=== PATIENT | female | born 1965 | race Caucasian/White ===

== ENCOUNTER → 2024-07-23 | Outpatient (CLI) | payer BC ==
[2024-07-23 15:31] LABS: THYROXINE (T4) 7.1 UG/DL (4.5-10.9)
[2024-07-23 15:32] LABS: THYROID STIMULATING HORMONE 1.568 uIU/ML (0.55-4.78); TOTAL 25(OH) VITAMIN D 29.3 NG/ML (20.0-100.0)
[2024-07-23 15:34] LABS: FREE THYROXINE INDEX 2.4 % (1.3-4.8); T UPTAKE 34.1 % (22.5-37.0)
[2024-07-23 15:46] LABS: FOLATE 6.9 NG/ML (>5.4)
[2024-07-25 16:16] LABS: ALDOLASE 4.7 U/L (< OR = 8.1)
[2024-07-28 05:52] LABS: VITAMIN E(ALPHA TOCOPHEROL) 10.1 mg/L (5.7-19.9); VITAMIN E(GAMMA TOCOPHEROL) 1.7 mg/L (<=4.3)
[2024-07-29 18:16] LABS: VITAMIN B6,PYRIDOXAL PHOSPHATE 6.5 ng/mL (2.1-21.7)
== END ==
LOC: M PLALAB 13:09
PROVIDERS: ATTEND Psychiatry & Neurology Neurology
DX: M79.10 Myalgia, unspecified site (principal); R53.1 Weakness; D51.9 Vitamin B12 deficiency anemia, unspecified; R20.2 Paresthesia of skin